=== PATIENT | male | born 1995 | race Caucasian/White ===

== ENCOUNTER 2022-03-04 23:59 | Emergency (ER) | payer OTHER, MEDICAID, SELFPAY ==
[2022-03-04 23:59] VITALS: BP 109/65; PULSE 95; RESP 25; TEMP 36.8; O2SAT 98; BMI 24.4
[2022-03-05] VITALS (19 sets, daily range): BP systolic 103–127; BP diastolic 60–84; PULSE 89–103; RESP 20–37; O2SAT 97–100
--- NOTE | 2022-03-05 00:09 | DI.RAD.S_ITS ---
PROCEDURE: XR CHEST 1V INDICATIONS: Chest pain TECHNIQUE: One view of the chest was acquired. COMPARISON: None. FINDINGS: Surgical changes and devices: None. Lungs and pleura: Low lung volumes. Lungs are clear. No pleural effusions or pneumothorax. Mediastinum: Mediastinal contours appear normal. Heart size is normal. Bones and chest wall: No suspicious bony lesions. Overlying soft tissues appear unremarkable. IMPRESSION: 1. Given low lung volumes, no acute cardiopulmonary disease. Dictated by: Joselin Saldaña M.D. on 03/05/2022 at 0:59 Approved by: Joselin Saldaña M.D. on 03/05/2022 at 1:00
--- NOTE | 2022-03-05 00:15 | ED_ITS ---
HPI - Chest Pain General Chief Complaint: Chest Pain Stated Complaint: chest pain Time Seen by Provider: 03/05/22 00:08 History of Present Illness HPI narrative: Patient here with mother. Brought here by ambulance from home. Slow onset of left sided chest pain at 6:00 p.m. tonight that is reproducible with deep breath and movement and palpation. No known injury or strain. EMS states no changes with nitro that was given twice and aspirin. Did vomit EN route here and was given Zofran. Patient has low heart risk factors. No personal or primary family history of coronary disease. Does not smoke cigarettes. No hypertension or hyperlipidemia. No history of blood clots in legs or lungs. Related Data Allergies Allergy/AdvReac Type Severity Reaction Status Date / Time No Known Drug Allergies Allergy Verified 03/05/22 00:29 Review of Systems Review of Systems Narrative: GENERAL: Denies chills, fatigue, malaise, fever, sweats. HEENT: Denies sinus pain, ear pain, sore throat RESPIRATORY: Denies dyspnea, cough CARDIOVASCULAR: Positive chest pain, negative palpitations GASTROINTESTINAL: Positive nausea, vomiting, negative abdominal pain : Denies dysuria, frequency, hematuria MUSCULOSKELETAL: denies muscle or bony pain SKIN: Denies rash, skin lesions NEUROLOGIC: Denies weakness, numbness ROS Unobtainable: All systems reviewed & are unremarkable except as noted in HPI and below Patient History Social History Smoking Status: Former smoker Exam Narrative Exam Narrative: GENERAL: in no distress, not toxic not dyspneic HEAD: Normocephalic. EYES: Pupils equal round No scleral icterus. ENT: Mucous membranes moist. NECK: Trachea midline. CARDIOVASCULAR: Regular rate and rhythm without murmurs, there is reproducible left pectoris and left mid axillary pain with deep breath and movement. There is reproducible tenderness at the left axilla midline but not at the pectoris RESPIRATORY: Clear to auscultation. Breath sounds equal bilaterally. No wheezes, rales, or rhonchi. GASTROINTESTINAL: Abdomen soft, non-tender EXTREMITIES: No gross deformities. BACK: No flank tenderness. NEURO: AOx4. SKIN: Warm and dry PSYCH: Not anxious, is cooperative Initial Vital Signs Initial Vital Signs: Vital Signs Temperature 98.3 F 03/04/22 23:59 Pulse Rate 95 H 03/04/22 23:59 Respiratory Rate 25 H 03/04/22 23:59 Blood Pressure 109/65 03/04/22 23:59 Pulse Oximetry 98 03/04/22 23:59 Oxygen Delivery Method 03/04/22 23:59 Scores HEART Score Heart Score history: Slightly Suspicious Heart Score EKG: Normal Heart Score Age: < 45 years old Heart Score risk factors: No known risk factors Heart Score troponin: < or = to normal limit Heart Score Total: 0 Course Course Course Narrative: No new issues during course stay Orders Ordered: ED Orders 03/05/22 00:06 EKG-12 Lead Stat 03/05/22 00:09 XR chest 1V Stat 03/05/22 00:15 Complete Blood Count AUTO DIFF Stat Comprehensive Metabolic Panel Stat D Dimer Stat Lipase Stat Troponin & CK Cardiac Panel Stat 03/05/22 02:00 Troponin & CK Cardiac Panel Stat Discontinued Medications Ketorolac Tromethamine (Ketorolac 30 Mg/Ml Vial) 15 mg IV NOW ONE Stop: 03/05/22 00:16 Last Admin: 03/05/22 00:36 Dose: 15 mg Documented By: SB Reevaluation(s) Reevaluation #1: Reviewed results patient and mother. Patient feeling much better after Toradol. Pain on the left side is nearly gone. At this time awaiting for 2nd troponin at 2:00 a.m.. Reviewed with patient and mother heart score is very low with low heart risk factors. That is reassuring. Also that reproduction of the pain is also reassuring and with palpation of the axillary ribs on the left is tender. Time: 01:33 Vital Signs Vital signs: Vital Signs - 8 hr 03/04/22 23:59 03/05/22 00:04 03/05/22 00:05 Temperature 98.3 F Pulse Rate 95 H 97 H Respiratory Rate 25 H 37 H Blood Pressure 109/65 109/65 Pulse Oximetry 98 99 Oxygen Delivery Method Room Air 03/05/22 00:05 03/05/22 00:10 03/05/22 00:10 Temperature Pulse Rate 95 H 100 H Respiratory Rate 32 H 33 H Blood Pressure 110/60 Pulse Oximetry 99 97 Oxygen Delivery Method 03/05/22 00:20 03/05/22 00:20 03/05/22 00:30 Temperature Pulse Rate 96 H Respiratory Rate 35 H Blood Pressure 110/68 127/61 Pulse Oximetry 99 Oxygen Delivery Method 03/05/22 00:30 03/05/22 00:40 03/05/22 00:40 Temperature Pulse Rate 95 H 93 H Respiratory Rate 25 H 29 H Blood Pressure 118/62 Pulse Oximetry 98 99 Oxygen Delivery Method 03/05/22 00:50 03/05/22 00:50 03/05/22 01:00 Temperature Pulse Rate 94 H Respiratory Rate 20 Blood Pressure 110/72 103/68 Pulse Oximetry 100 Oxygen Delivery Method 03/05/22 01:00 03/05/22 01:10 03/05/22 01:10 Temperature Pulse Rate 94 H 96 H Respiratory Rate 22 24 Blood Pressure 108/65 Pulse Oximetry 99 99 Oxygen Delivery Method 03/05/22 01:20 03/05/22 01:20 03/05/22 01:30 Temperature Pulse Rate 96 H Respiratory Rate 20 Blood Pressure 112/66 105/65 Pulse Oximetry 100 Oxygen Delivery Method 03/05/22 01:30 03/05/22 01:40 03/05/22 01:40 Temperature Pulse Rate 96 H 96 H Respiratory Rate 24 27 H Blood Pressure 104/64 Pulse Oximetry 100 98 Oxygen Delivery Method 03/05/22 01:50 03/05/22 01:50 03/05/22 02:00 Temperature Pulse Rate 98 H Respiratory Rate 35 H Blood Pressure 109/84 110/71 Pulse Oximetry 98 Oxygen Delivery Method 03/05/22 02:00 03/05/22 02:10 03/05/22 02:10 Temperature Pulse Rate 103 H 96 H Respiratory Rate 25 H 21 Blood Pressure 113/71 Pulse Oximetry 98 97 Oxygen Delivery Method 03/05/22 02:20 03/05/22 02:20 03/05/22 02:30 Temperature Pulse Rate 94 H Respiratory Rate 24 Blood Pressure 114/72 113/73 Pulse Oximetry 97 Oxygen Delivery Method 03/05/22 02:30 03/05/22 02:41 03/05/22 02:41 Temperature Pulse Rate 93 H 96 H Respiratory Rate 22 26 H Blood Pressure 106/64 Pulse Oximetry 97 100 Oxygen Delivery Method 03/05/22 02:50 03/05/22 02:50 Temperature Pulse Rate 89 Respiratory Rate 21 Blood Pressure 103/64 Pulse Oximetry 100 Oxygen Delivery Method MDM - Chest Pain Differential Diagnosis Differential diagnosis: Likely fracture of rib, pneumothorax, stable angina, unstable angina pectoris, atypical chest pain, st elevation myocardial infarction, costochondritis and chest pain Lab Data Result diagrams: 03/05/22 00:15 03/05/22 00:15 Labs: Lab Results 03/05/22 03/05/22 03/05/22 Range/Units 00:15 00:15 00:15 WBC 12.3 H (4.5-11.0) X10^3/uL RBC 4.67 (4.5-5.9) X10^6/uL Hgb 12.7 L (13.5-17.5) g/dL Hct 37.5 L (41-53) % MCV 80.2 (80-100) fL MCH 27.2 (26-34) PG MCHC 33.9 (30-36) % RDW 12.5 (11.6-14.8) % Plt Count 339 (150-400) X10^3/uL Neut % (Auto) 71.3 (50-75) % Lymph % (Auto) 20.2 L (25-40) % Ashe % (Auto) 6.3 (3-14) % Eos % (Auto) 1.6 L (2-4) % Baso % (Auto) 0.6 (0-2) % Neut # (Auto) 8700 H (6258-3685) /uL Lymph # (Auto) 2500 (5634-0268) /uL Ashe # (Auto) 800 (0-900) /uL Eos # (Auto) 200 (0-450) /uL Baso # (Auto) 100 (0-100) /uL D-Dimer < 500 (<500) ng/ml Sodium 139 (137-145) mmol/L Potassium 3.8 (3.4-5.1) mmol/L Chloride 101 (98-107) mmol/L Carbon Dioxide 30 (22-32) mmol/L BUN 20 (9-20) mg/dL Creatinine 1.03 (0.66-1.25) mg/dL Estimated GFR > 60 (>60) mL/min BUN/Creatinine Ratio 19.4 (6-22) Glucose 119 H (70-100) mg/dL Calcium 9.0 (8.4-10.2) mg/dL Total Bilirubin 0.3 (0.2-1.3) mg/dL AST 20 (17-59) IU/L ALT 18 (<50) IU/L Alkaline Phosphatase 57 (38-126) U/L Total Creatine Kinase 100 (55-170) U/L CK-MB (CK-2) TNP CK-MB (CK-2) Rel Index TNP Troponin I < 0.012 (0.01-0.034) ng/mL Total Protein 7.5 (6.3-8.2) g/dL Albumin 4.5 (3.5-5.0) g/dL Globulin 3.0 (1.7-4.1) g/dL Albumin/Globulin Ratio 1.5 (1.0-2.8) Lipase 40 (23-300) U/L 03/05/22 Range/Units 02:00 WBC (4.5-11.0) X10^3/uL RBC (4.5-5.9) X10^6/uL Hgb (13.5-17.5) g/dL Hct (41-53) % MCV (80-100) fL MCH (26-34) PG MCHC (30-36) % RDW (11.6-14.8) % Plt Count (150-400) X10^3/uL Neut % (Auto) (50-75) % Lymph % (Auto) (25-40) % Ashe % (Auto) (3-14) % Eos % (Auto) (2-4) % Baso % (Auto) (0-2) % Neut # (Auto) (6580-2771) /uL Lymph # (Auto) (7611-2738) /uL Ashe # (Auto) (0-900) /uL Eos # (Auto) (0-450) /uL Baso # (Auto) (0-100) /uL D-Dimer (<500) ng/ml Sodium (137-145) mmol/L Potassium (3.4-5.1) mmol/L Chloride (98-107) mmol/L Carbon Dioxide (22-32) mmol/L BUN (9-20) mg/dL Creatinine (0.66-1.25) mg/dL Estimated GFR (>60) mL/min BUN/Creatinine Ratio (6-22) Glucose (70-100) mg/dL Calcium (8.4-10.2) mg/dL Total Bilirubin (0.2-1.3) mg/dL AST (17-59) IU/L ALT (<50) IU/L Alkaline Phosphatase (38-126) U/L Total Creatine Kinase 91 (55-170) U/L CK-MB (CK-2) TNP CK-MB (CK-2) Rel Index TNP Troponin I < 0.012 (0.01-0.034) ng/mL Total Protein (6.3-8.2) g/dL Albumin (3.5-5.0) g/dL Globulin (1.7-4.1) g/dL Albumin/Globulin Ratio (1.0-2.8) Lipase (23-300) U/L Imaging Data Chest x-ray: Radiologist's Impression: [address] [address] XRay Report Signed Patient: Brayden Byrne MR#: [id number] : 1995 Acct:[id number] Age/Sex: 27 / M Date of Service: 03/05/22 Loc: ED Accession Number: [id number] ?? Procedure: XR chest 1V Ordering Provider: Jose Juan Naranjo MD PROCEDURE:? XR CHEST 1V ? INDICATIONS:? Chest pain ? TECHNIQUE:? One view of the chest was acquired.? ? COMPARISON:? None. ? FINDINGS:? ? Surgical changes and devices:? None.? ? Lungs and pleura:? Low lung volumes.? Lungs are clear.? No pleural effusions or pneumothorax.? ? Mediastinum:? Mediastinal contours appear normal.? Heart size is normal.? ? Bones and chest wall:? No suspicious bony lesions.? Overlying soft tissues appe ar unremarkable.? ? IMPRESSION:? ? 1. Given low lung volumes, no acute cardiopulmonary disease. ? ? Dictated by: Joselin Saldaña M.D. on 03/05/2022 at 0:59 ? ? Approved by: Joselin Saldaña M.D. on 03/05/2022 at 1:00 ? ECG Data Interpretation: Normal sinus rhythm, normal EKG rate [address] elevation or depression MDM Narrative Medical decision making narrative: Appropriate for discharge home. Patient has reproducible left axillary chest pain on palpation as well as movement and deep breath. Patient has low heart score. Pain better after Toradol. Return precautions reviewed with patient and mother. They desire discharge home. Discharge Plan Departure Patient Disposition: Home Clinical Impression: Costalchondritis Instructions: DI for Costochondritis Activity Restrictions/Additional Instructions: See family doctor next week for re-evaluation. May use ibuprofen for discomfort pain. May continue home medications. Return if worse if any questions or concerns Referrals: Oanh Reed MD [Primary Care Provider] - Visit Report Forms: Patient Portal/API
[2022-03-05 00:27] LABS: Add Manual Diff / Slide Review NO; Basophils Absolute Auto 100 /uL (0-100); Basophils Percent Auto 0.6 % (0-2); Eosinophils Absolute Auto 200 /uL (0-450); Eosinophils Percent Auto 1.6 % (2-4); Hematocrit 37.5 % (41-53); Hemoglobin 12.7 g/dL (13.5-17.5); Lymphocytes Absolute Auto 2500 /uL (1100-4500); Lymphocytes Percent Auto 20.2 % (25-40); Mean Corpuscular HGB Conc 33.9 % (30-36); Mean Corpuscular Hemoglobin 27.2 PG (26-34); Mean Corpuscular Volume 80.2 fL (80-100); Monocytes Absolute Auto 800 /uL (0-900); Monocytes Percent Auto 6.3 % (3-14); Neutrophils Absolute Auto 8700 /uL (1500-7000); Neutrophils Percent Auto 71.3 % (50-75); Platelet Count 339 X10^3/uL (150-400); Red Blood Cell Count 4.67 X10^6/uL (4.5-5.9); Red Cell Distribution Width 12.5 % (11.6-14.8); White Blood Cell Count 12.3 X10^3/uL (4.5-11.0)
[2022-03-05 00:36] LABS: Alanine Aminotransferase 18 IU/L (<50); Albumin 4.5 g/dL (3.5-5.0); Albumin Globulin Ratio 1.5 (1.0-2.8); Alkaline Phosphatase 57 U/L (38-126); Aspartate Aminotransferase 20 IU/L (17-59); BUN Creatinine Ratio 19.4 (6-22); Bilirubin Total 0.3 mg/dL (0.2-1.3); Blood Urea Nitrogen 20 mg/dL (9-20); Carbon Dioxide 30 mmol/L (22-32); Chloride 101 mmol/L (98-107); Creatine Kinase 100 U/L (55-170); Estimated Glomerular Filt Rate > 60 mL/min (>60); Glucose 119 mg/dL (70-100); HEMOLYSIS < 15 (0-50); Lipase 40 U/L (23-300); Potassium 3.8 mmol/L (3.4-5.1); Sodium 139 mmol/L (137-145); Total Protein 7.5 g/dL (6.3-8.2)
[2022-03-05] MEDS: KETOROLAC 30 MG/ML VIAL 15 MG IV (00:36)
[2022-03-05 00:47] LABS: Troponin I < 0.012 ng/mL (0.01-0.034)
[2022-03-05 01:19] LABS: D Dimer < 500 ng/ml (<500)
[2022-03-05 02:24] LABS: Creatine Kinase 91 U/L (55-170)
[2022-03-05 02:37] LABS: Troponin I < 0.012 ng/mL (0.01-0.034)
== END 2022-03-05 03:04 | disposition home or self-care (01) ==
PROVIDERS: Emergency Provider Emergency Medicine; PCP Pediatrics
DX: M94.0 Chondrocostal junction syndrome [Tietze] (principal)
CPT/HCPCS: 36415; 71045; 80053; 82550; 83690; 84484; 85025; 85379; 93005; 96374; 99284; J1885